=== PATIENT | female | born 1930 | race Caucasian/White ===

== ENCOUNTER 2017-01-31 15:54 | Emergency (ER) | payer MEDICARE, OTHER ==
[~2017-01-31] VITALS: Ht 168.9 cm; Wt 88.6 kg
[2017-01-31 16:13] VITALS: BP 119/50; PULSE 70; RESP 17; O2SAT 96
--- NOTE | 2017-01-31 16:15 | ED.REPORT ---
HPI-Dyspnea / Wheezing Date of Service January 31, 2017 ED Provider: Trell Giang MD The patient is a 86 year old female w/ a hx of COPD and enlarged heart who presents to the ED sent from [facility] due to a productive cough for the past 2 weeks. C/o associated vomiting, SOB, wheezing and intermittent chest pain. She was given nitro and full dose of aspirin at the clinic. She denies fevers, nasal congestion, and sore throat. Nursing Notes Stated Complaint: SHORTNESS OF BREATH Chief Complaint: Chest Pain Nursing Notes Reviewed: Yes Allergies: Coded Allergies: No Known Allergies (Unverified , 01/31/17) Scheduled Levofloxacin (Levaquin) 750 Mg Tablet 750 MG PO DAILY General Time Seen by MD: 16:13 Chief Complaint Cough Hx Obtained From: Patient Arrived By: Walk-in Sudden in Onset?: Yes Onset Occurred: More than a week ago... (2 weeks) Severity: Current: No pain currently Recent Healthcare: No recent doctor visit, No recent hospitalization Similar Sx Previous: No Past Medical History Past Medical History CHF HTN Past Surgical History Reports: Appendectomy, Hysterectomy, Tonsillectomy Smoking History Unknown if Ever Smoker Social History Other Social History: Good social support, Local resident Ambulatory Status Independent Review of Systems Constitutional: Denies: Fever Ears / Nose / Throat: Denies: Nasal congestion, Sore throat Respiratory: Reports: Prod cough, clear, Shortness of breath, Wheezing Cardiovascular: Reports: Chest pain Complete sys rev & neg: except as marked. GI: Reports: Vomiting Physical Exam Initial Vital Signs Vital Signs (First) Date Time Temp Pulse Resp B/P Pulse Ox O2 Delivery O2 Flow Rate FiO2 01/31/17 16:13 36.8 70 17 119/50 96 Room Air reviewed Initial VS: Reviewed Head / Eyes: Atraumatic, Normocephalic, PERRL ENT: Mucous membranes moist, Conjunctiva normal Abdomen / GI: Soft, Non-tender, No guarding, No rebound, No distention Back: No CVA tenderness Extremities: Vascular intact, Neuro intact, No swelling, No tenderness Skin: Warm, Dry Neurologic: Alert, Oriented General/Constitutional: Awake, Alert, Cooperative Neck: Supple, No meningismus Respiratory / Chest: No rales, No rhonchi, No wheezing faint crackles in bilateral bases Cardiovascular: No murmurs Heart Rate / Rhythm: Positive: Tachycardia Interpretation & Diagnostics Lab Results Interpretation Result Diagram: 01/31/17 1635 01/31/17 1635 Test 01/31/17 16:35 White Blood Count 7.8th/mm3 (3.8-10.1) Red Blood Count 4.57mil/mm3 (3.90-5.20) Hemoglobin 13.9g/dL (12.0-15.6) Hematocrit 41.0% (35.0-46.0) Mean Corpuscular Volume 89.7fL (81-100) Mean Corpuscular Hemoglobin 30.4pg (27.0-35.0) Mean Corpuscular Hemoglobin Concent 33.9% (32.0-37.0) Red Cell Distribution Width 13.5% (12.3-15.4) Platelet Count 278bil/L (150-400) Neutrophils (%) (Auto) 57.4% (40-74) Lymphocytes (%) (Auto) 21.3% (14-46) Monocytes (%) (Auto) 16.0% (4-12) Eosinophils (%) (Auto) 3.7% (0-5) Basophils (%) (Auto) 0.4% (0-3) D-Dimer 1.23mg/L FEU (<0.50) Sodium Level 137mEq/L (134-144) Potassium Level 4.2mEq/L (3.5-5.2) Chloride Level 96mEq/L (97-108) Carbon Dioxide Level 27mmol/L (18-29) Blood Urea Nitrogen 19mg/dL (8-27) Creatinine 0.88mg/dL (0.57-1.00) Estimat Glomerular Filtration Rate 87mL/min (>59) Glucose Level 110mg/dL (60-99) Calcium Level 8.6mg/dL (8.5-10.1) Total Bilirubin 0.3mg/dL (0.0-1.2) Aspartate Amino Transf (AST/SGOT) 17U/L (0-50) Alanine Aminotransferase (ALT/SGPT) 15U/L (0-32) Alkaline Phosphatase 80U/L (25-165) Troponin T < 0.010ug/L (0.0-0.011) Pro-B-Type Natriuretic Peptide 202.2pg/mL (0-738) Total Protein 7.1g/dL (6.4-8.4) Albumin 3.5g/dL (3.4-5.0) [place] Top Tube Received (Received) X-Ray Chest Interpretation Chest Xray Interpretation: IMPRESSION: Right lateral lung base pneumonia. Continued plain film surveillance is recommended to ensure resolution, and to exclude underlying or central malignancy. Dictated by: Loretta Tam M.D. on 01/31/2017 at 16:59 Approved by: Loretta Tam M.D. on 01/31/2017 at 17:00 View: Portable Interpretation / Wet Read by: Interpret - Radiologist Re-Eval/Medical Decision Med Decision/Clinical Course 86-year-old female with cough. Chest x-ray and CT show right lower lobe pneumonia. Her oxygenation is stable. Her labs are stable. 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 D-dimer was positive therefore CT chest was performed with no PE. Patient was discharged home with Levaquin. First dose given here. She is advised to follow-up the primary doctor tomorrow the next day for recheck. Return if any new or worsening shortness breath or any other new or worsening symptoms. Re-Evaluation/Progress : Time of Eval: 17:14 Re-Evaluation/Progress Note: Pt rechecked. Chest x-ray shows pneumonia. Her d-dimer is slightly elevated. Consultation : Referral / Consult Name: Sonam Mena MD Consulted With: Cardiology Call Returned at: 16:54 Note: Case discussed with Dr. Mena. He does not think there are any EKG changes. Counseled Regarding: Diagnosis, Lab results, Need for follow-up, When/why to return to ED Discharge & Departure Impression: Primary Impression: Pneumonia Pneumonia type: due to unspecified organism Laterality: right Lung location : unspecified part of lung Qualified Code: J18.9 - Pneumonia, unspecified organism Disposition: Home Discharge Condition All VS Reviewed: Yes Condition: Stable Additional Instructions: Thank you for entrusting us with your care today. I am sending you home with antibiotics for your pneumonia. Follow up with your primary care doctor tomorrow or the next day. Do not hesitate to return to the Emergency Department for any new or worsening symptoms including difficulty breathing, wheezing, dizziness, lightheadedness, weakness, chest pain, and sweating. I hope you feel better soon, enjoy the sunshine! Referrals: Moises Carranza MD (Family) Scribe Attestation Portion of this note were transcribed by Afsaneh Villeda. I, Dr. Giang, personally performed the history, physical exam, and medical decision-making: I reviewed and confirmed the accuracy for the information in the transcribed note. Signed by: karie Perez, 01/31/17 1800 copies to: Moises Carranza MD, Ben M MD January 31, 2017 16:15 Afsaneh Villead January 31, 2017 16:22
[2017-01-31 16:48] LABS: BASOPHILS % (AUTO) 0.4 % (0-3); EOSINOPHILS % (AUTO) 3.7 % (0-5); Mean Corpuscular Hemoglobin 30.4 pg (27.0-35.0); Mean Corpuscular Volume 89.7 fL (81-100); NEUTROPHILS % (AUTO) 57.4 % (40-74); Platelet Count 278 bil/L (150-400)
--- NOTE | 2017-01-31 17:02 | DRSVH ---
PROCEDURE: X-RAY CHEST ONE VIEW, PORTABLE ([id number]) INDICATIONS: Right side pleuritic chest pain TECHNIQUE: One view of the chest was acquired. COMPARISON: None. FINDINGS: Surgical changes and devices: None. Lungs and pleura: No pleural effusions or pneumothorax. There is mild patchy airspace opacity at the right lateral lung base. Mediastinum: Mediastinal contours appear normal. Heart size is normal. Bones and chest wall: No suspicious bony lesions. Overlying soft tissues appear unremarkable. IMPRESSION: Right lateral lung base pneumonia. Continued plain film surveillance is recommended to en sure resolution, and to exclude underlying or central malignancy. Dictated by: Loretta Tam M.D. on 01/31/2017 at 16:59 Approved by: Loretta Tam M.D. on 01/31/2017 at 17:00
[2017-01-31 17:11] LABS: TROPONIN T < 0.010 ug/L (0.0-0.011)
[2017-01-31] MEDS ORDERED: LEVO750T9 PO (17:44)
[2017-01-31] MEDS ORDERED: levoFLOXacin 750 mg Tablet PO ONE (17:50)
--- NOTE | 2017-01-31 18:18 | DRSVH ---
PROCEDURE: CT ANGIO CHEST PULMONARY EMBOLISM ([id number]) INDICATIONS: R pleuritic chest pain r/o PE. Elevated ddimer TECHNIQUE: After the administration of intravenous contrast, 2 mm thick sections acquired from the pulmonary api jesús to the posterior costophrenic angles. 3-dimensional maximum intensity projection (MIP) coronal a nd sagittal reformats were then acquired through the thorax. For radiation dose reduction, the follo wing was used: automated exposure control, adjustment of mA and/or kV according to patient size. COMPARISON: [facility], CR, XR CHEST 1VW (PORTABLE), 01/31/2017, 16:28. FINDINGS: Image quality: Excellent. Pulmonary arteries: Pulmonary arteries are normal in size, and demonstrate no intraluminal filling d efects to suggest central pulmonary embolism. Lungs and pleura: There is mild patchy airspace opacity within the right lung base, as seen by plain film. There is superimposed nodular groundglass density within the right anterior lung base measuring 8 mm. There is mild emphysema with apical predominance. There is a 6 mm diameter subpleural nodule w ithin the right upper lobe anteriorly.. No pleural effusions or pneumothorax. Central and periphera l airways are patent. Mediastinum: Heart size is normal, without pericardial effusion. There is calcification of the edward ry vasculature. No mediastinal or hilar adenopathy. There is mild fusiform aneurysmal dilatation of t he ascending thoracic aorta measuring 46 mm. Esophagus is normal in caliber, without hiatal hernia. Bones and chest wall: No suspicious bony lesions. Ribs and thoracic spine appear intact throughout. Thyroid gland is within normal limits. No axillary or supraclavicular adenopathy. Abdomen: Visualized portions of the upper abdomen demonstrate a nodular hepatic contour. IMPRESSION: 1. No pulmonary embolus. 2. As seen by plain film, right lung base pneumonia is present. 3. Right lung nodules; followup is recommended as below. 4. 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 5. Coronary artery disease. Fleischner Society criteria for SOLID lung nodule followup. Nodule size (mm)Low-risk patientHigh-risk [id number] follow-up neededFollow-up at 12 mo; if no alonso e, no further follow-up>[id number] CT at 12 mo; if no change, no further follow-up needed.Initial f ollow-up CT at 6-12 mo, then 18-24 mo if no change. >6-8Initial follow-up CT at 6-12 mo, then 18-24 mo if no change. Initial follow-up CT at 3-6 mo, then 9-12 mo and 24 mo if no change. >8Follow-up CT at 3, 9, 24 mo. Or PET and/or biopsy.Same as for low-risk pts. Fleischner Society criteria for SUB-SOLID lung nodule followup. Solitary pure ground-glass nodules5 mm or lessNo followup needed. >5 mm3 mo follow-up CT to confirm persistence. Then annual CT for 3 years. Part-solid nodules3 mo follow-up CT to confirm persistence . If persistent with solid component <5 mm, annual CT for at least 3 years. If solid component is 5 mm or more, biopsy or surgical resection. Consider PET-CT for lesions > 10 mm. Multiple sub-solid nodulesPure ground glass nodules [address] at 2 and 4 years. Pure ground glass nodules >5 mm without dominant lesion. [address] to confirm persistence, then annual followup CT for at least 3 years. Dominant nodule(s) with part-solid or solid component. [address] to confirm persistence. If persistent, consider biopsy or surgical resection, juanito if lesions have >5 m m solid component. Dictated by: Loretta Tam M.D. on 01/31/2017 at 18:13 Approved by: Loretta Tam M.D. on 01/31/2017 at 18:16
[2017-01-31 18:33] VITALS: BP 144/61; PULSE 80; RESP 26; O2SAT 94
== END 2017-01-31 18:37 | disposition home or self-care (01) ==
LOC: EDUNIT# 15:54 → SED 15:54 → EDBD 15:54 → SED 18:37
DX: J18.9 Pneumonia, unspecified organism (principal); R11.10 Vomiting, unspecified; R06.02 Shortness of breath; R07.89 Other chest pain; I50.9 Heart failure, unspecified; I10 Essential (primary) hypertension
CPT/HCPCS: 36415; 71010; 71275; 80053; 83880; 84484; 85025; 85378; 93005; 99285; Q9967